=== PATIENT | male | born 1950 | race Caucasian/White ===

== ENCOUNTER 2019-04-04 17:26 | Outpatient (RCR) | payer MEDICARE, BC ==
[2019-04-02 05:20] VITALS: BP 133/79
[2019-04-02 17:20] VITALS: BP 141/64
[2019-04-03 05:06] VITALS: BP 121/87
[2019-04-03 17:22] VITALS: BP 119/74
[~2019-04-04] VITALS: Ht 193 cm; Wt 113.6 kg
[2019-04-04 05:39] VITALS: BP 125/76
[~2019-04-04 17:26] MED LIST: MAXIPIME2 G1 IV
[2019-04-04 17:44] VITALS: BP 112/82
== END 2019-04-04 18:30 | disposition home or self-care (01) ==
LOC: AMSURD 17:26
DX: N39.0 Urinary tract infection, site not specified (principal); Z79.899 Other long term (current) drug therapy
CPT/HCPCS: J0692

== ENCOUNTER → 2019-04-28 | Outpatient (CLI) | payer MEDICARE, BC ==
[2019-04-27 17:58] VITALS: BP 123/82
[2019-04-28 06:29] LABS: HEMATOCRIT 33.4 % (42.0-52.0); HEMOGLOBIN 10.8 g/dL (13.5-18.0); MEAN PLATELET VOLUME 9.2 fl (7.4-10.4); RED BLOOD COUNT 4.06 M/mm3 (4.20-5.60); RED CELL DISTRIBUTION WIDTH 13.2 % (11.5-14.5); WHITE BLOOD COUNT 4.7 K/mm3 (4.8-10.8)
[2019-04-28 06:35] LABS: ALBUMIN 3.4 g/dL (3.4-4.8)
[2019-04-28 06:36] LABS: CALCIUM 8.6 mg/dL (8.3-10.5)
[2019-04-28 06:37] LABS: TOTAL PROTEIN 6.2 g/dL (6.2-8.1)
[2019-04-28 06:39] LABS: TOTAL BILIRUBIN 0.3 mg/dL (0.2-1.2)
== END ==
LOC: LAB 05:51
PROVIDERS: Internal Medicine Infectious Disease
DX: N39.0 Urinary tract infection, site not specified (principal); B96.5 Pseudomonas (aeruginosa) (mallei) (pseudomallei) as the cause of diseases classified elsewhere

== ENCOUNTER → 2019-05-05 | Outpatient (CLI) | payer MEDICARE, BC ==
[2019-05-04 18:14] VITALS: BP 134/78
[2019-05-05 06:52] LABS: HEMATOCRIT 33.8 % (42.0-52.0); HEMOGLOBIN 10.6 g/dL (13.5-18.0); MEAN PLATELET VOLUME 9.2 fl (7.4-10.4); RED BLOOD COUNT 4.14 M/mm3 (4.20-5.60); WHITE BLOOD COUNT 4.5 K/mm3 (4.8-10.8)
[2019-05-05 07:00] LABS: ALBUMIN 3.6 g/dL (3.4-4.8); POTASSIUM 4.1 mmol/L (3.5-5.1)
[2019-05-05 07:01] LABS: CALCIUM 8.6 mg/dL (8.3-10.5)
[2019-05-05 07:03] LABS: TOTAL PROTEIN 6.5 g/dL (6.2-8.1)
[2019-05-05 07:04] LABS: TOTAL BILIRUBIN 0.3 mg/dL (0.2-1.2)
== END ==
LOC: LAB 05:53
PROVIDERS: Internal Medicine Cardiovascular Disease
DX: N39.0 Urinary tract infection, site not specified (principal); B96.5 Pseudomonas (aeruginosa) (mallei) (pseudomallei) as the cause of diseases classified elsewhere

== ENCOUNTER 2019-05-09 17:46 | Outpatient (RCR) | payer MEDICARE, BC ==
[2019-04-26 18:05] VITALS: BP 114/75
[2019-04-27 05:55] VITALS: BP 133/69
[2019-04-27 17:58] VITALS: BP 123/82
[2019-04-28 05:56] VITALS: BP 118/79
[2019-04-28 18:10] VITALS: BP 125/77
[2019-04-29 05:53] VITALS: BP 132/79
[2019-04-29 18:28] VITALS: BP 129/75
[2019-04-30 05:52] VITALS: BP 118/79
[2019-04-30 18:35] VITALS: BP 122/78
[2019-05-01 06:01] VITALS: BP 111/70
[2019-05-01 18:00] VITALS: BP 124/86
[2019-05-02 06:15] VITALS: BP 111/74
[2019-05-02 18:21] VITALS: BP 129/80
[2019-05-03 06:00] VITALS: BP 129/79
[2019-05-03 17:47] VITALS: BP 114/82
[2019-05-04 05:59] VITALS: BP 116/84
[2019-05-04 18:14] VITALS: BP 134/78
[2019-05-05 05:54] VITALS: BP 123/84
[2019-05-05 17:48] VITALS: BP 120/77
[2019-05-06 05:47] VITALS: BP 121/75
[2019-05-06 17:59] VITALS: BP 146/94
[2019-05-07 05:52] VITALS: BP 127/87
[2019-05-07 17:51] VITALS: BP 124/84
[2019-05-08 05:51] VITALS: BP 125/77
[2019-05-08 17:50] VITALS: BP 122/82
[~2019-05-09] VITALS: Ht 193 cm; Wt 113.6 kg
[2019-05-09 05:54] VITALS: BP 120/87
[2019-05-09 17:50] VITALS: BP 134/77
== END 2019-05-09 18:11 | disposition home or self-care (01) ==
LOC: AMSURD 17:46
DX: N39.0 Urinary tract infection, site not specified (principal); B96.5 Pseudomonas (aeruginosa) (mallei) (pseudomallei) as the cause of diseases classified elsewhere
CPT/HCPCS: J0692

== ENCOUNTER → 2019-09-01 | Outpatient (CLI) | payer MEDICARE, BC ==
[2019-08-31 18:39] VITALS: BP 138/85
[~2019-09-01] MED LIST changes: +AMOXICILLIN 50500 MG
[2019-09-01 18:17] LABS: POTASSIUM 4.2 mmol/L (3.5-5.1)
[2019-09-01 18:18] LABS: CALCIUM 9.3 mg/dL (8.3-10.5)
== END ==
LOC: LAB 17:55
PROVIDERS: Urology
DX: Z51.81 Encounter for therapeutic drug level monitoring (principal); Z79.899 Other long term (current) drug therapy

== ENCOUNTER 2019-09-04 17:30 | Outpatient (RCR) | payer MEDICARE, BC ==
[2019-08-29 17:58] VITALS: BP 132/87
[2019-08-30 18:26] VITALS: BP 140/94
[2019-08-30 19:03] VITALS: BP 140/77
--- NOTE | 2019-08-31 14:47 | NUR ---
DUE TO RECENT ORDER CHANGES THIS NURSE CALLED PHARMACY TO VERIFY WHEN GENT TROUGH IS DUE, PHARMACY VERIFIES TO DRAW GENT TROUGH PRIOR TO THE 3RD DOSE OF THE NEWEST ORDER DOSAGE, GENT TROUGH DUE PRIOR TO TOMORROW'S (09/01/18) DOSE PER PHARMACY
[2019-08-31 17:59] VITALS: BP 134/85
[2019-08-31 18:39] VITALS: BP 138/85
[2019-09-01 18:21] VITALS: BP 143/81
[2019-09-01 18:48] VITALS: BP 126/89
[2019-09-02 18:20] VITALS: BP 122/69
[2019-09-02 18:54] VITALS: BP 119/82
[2019-09-03 18:00] VITALS: BP 119/83
[~2019-09-04] VITALS: Ht 193 cm; Wt 113.6 kg
[2019-09-04 18:10] VITALS: BP 148/93
[2019-09-04 18:34] VITALS: BP 135/78
== END 2019-09-04 19:00 | disposition home or self-care (01) ==
LOC: AMSURD 17:30
DX: Z51.81 Encounter for therapeutic drug level monitoring (principal); Z79.899 Other long term (current) drug therapy
CPT/HCPCS: J1580

== ENCOUNTER 2019-09-28 16:25 | Outpatient (RCR) | payer MEDICARE, BC ==
[2019-09-22 07:24] VITALS: BP 134/86
[2019-09-22 16:42] VITALS: BP 146/93
[2019-09-23 05:50] VITALS: BP 126/76
[2019-09-23 06:10] VITALS: BP 121/82
[2019-09-23 16:25] VITALS: BP 143/91
[2019-09-24 07:16] VITALS: BP 150/58
[2019-09-24 16:29] VITALS: BP 148/95
[2019-09-25 07:13] VITALS: BP 139/82
[2019-09-25 16:45] VITALS: BP 129/90
[2019-09-26 07:10] VITALS: BP 121/79
[2019-09-26 16:45] VITALS: BP 151/92
--- NOTE | 2019-09-26 17:06 | NUR ---
This RN inserted a 20G IV into the pt's left antecubital fossa. The IV flushes without inflammation, redness, or tenderness noted. The pt's IV is wrapped with an FAISAL wrap and he leaves with IV in place. Pt is scheduled for IV antibiotics to be administered for two more days.
[2019-09-27 06:59] VITALS: BP 111/67
[2019-09-27 16:37] VITALS: BP 127/86
[~2019-09-28] VITALS: Ht 193 cm; Wt 113.6 kg
[2019-09-28 07:06] VITALS: BP 128/85
[2019-09-28 17:45] VITALS: BP 138/92
== END 2019-09-28 17:48 | disposition home or self-care (01) ==
LOC: AMSURD 16:25
DX: Z51.81 Encounter for therapeutic drug level monitoring (principal); Z79.899 Other long term (current) drug therapy
CPT/HCPCS: J0692

== ENCOUNTER → 2020-04-27 | Outpatient (CLI) | payer MEDICARE, BC ==
[2020-04-27 05:49] VITALS: BP 133/86
[2020-04-28 16:12] LABS: POTASSIUM 4.3 mmol/L (3.5-5.1)
[2020-04-28 16:13] LABS: CALCIUM 8.5 mg/dL (8.3-10.5)
== END ==
LOC: LAB 16:01
PROVIDERS: Nurse Practitioner Primary Care
DX: Z01.89 Encounter for other specified special examinations (principal)

== ENCOUNTER 2020-05-06 05:45 | Outpatient (RCR) | payer MEDICARE, BC ==
[2020-04-27 05:49] VITALS: BP 133/86
[2020-04-28 05:58] VITALS: BP 130/87
[2020-04-28 06:38] VITALS: BP 127/86
[2020-04-29 06:04] VITALS: BP 147/97
[2020-04-29 06:51] VITALS: BP 109/92
[2020-04-30 06:09] VITALS: BP 129/89
[2020-04-30 06:35] VITALS: BP 129/95
[2020-05-01 05:57] VITALS: BP 140/100
[2020-05-02 05:47] VITALS: BP 128/90
[2020-05-03 06:00] VITALS: BP 128/81
[2020-05-04 05:54] VITALS: BP 130/91
[2020-05-04 06:40] VITALS: BP 130/90
[2020-05-05 05:56] VITALS: BP 135/90
[2020-05-05 06:40] VITALS: BP 138/91
[~2020-05-06] VITALS: Ht 193 cm; Wt 111.8 kg
[2020-05-06 05:52] VITALS: BP 134/83
[2020-05-06 06:33] VITALS: BP 136/93
== END 2020-05-06 06:33 | disposition home or self-care (01) ==
LOC: AMSURD 05:45
DX: N39.0 Urinary tract infection, site not specified (principal)
CPT/HCPCS: J1580

== ENCOUNTER → 2020-09-15 | Outpatient (CLI) | payer MEDICARE, BC ==
[2020-09-14 18:56] VITALS: BP 147/108
== END ==
LOC: LAB 05:53
DX: Z01.89 Encounter for other specified special examinations (principal)

== ENCOUNTER 2020-09-20 17:37 | Outpatient (RCR) | payer MEDICARE, BC ==
[2020-09-14 18:56] VITALS: BP 147/108
--- NOTE | 2020-09-14 19:35 | NUR ---
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
[2020-09-15 18:06] VITALS: BP 136/54
[2020-09-16 17:25] VITALS: BP 132/98
[2020-09-17 18:39] VITALS: BP 121/89
[2020-09-17 19:19] VITALS: BP 136/93
[2020-09-18 18:49] VITALS: BP 131/91
[2020-09-18 19:16] VITALS: BP 129/90
[2020-09-19 17:55] VITALS: BP 145/96
[2020-09-20 17:58] VITALS: BP 145/93
== END 2020-12-13 | disposition home or self-care (01) ==
LOC: AMSURD
DX: N39.0 Urinary tract infection, site not specified (principal)
CPT/HCPCS: J1580

== ENCOUNTER → 2021-02-22 | Outpatient (CLI) | payer MEDICARE, BC | LOC: LAB 06:50 | DX: Z01.89 Encounter for other specified special examinations (principal) ==

== ENCOUNTER 2021-03-01 19:37 | Outpatient (RCR) | payer MEDICARE, BC ==
[2021-02-20 19:51] VITALS: BP 118/88
[2021-02-21 19:55] VITALS: BP 118/88
[2021-02-22 19:51] VITALS: BP 125/91
[2021-02-23 19:36] VITALS: BP 125/86
[2021-02-24 20:05] VITALS: BP 121/96
[2021-02-25 20:13] VITALS: BP 116/81
[2021-02-27 19:31] VITALS: BP 107/85
[2021-02-27 20:30] VITALS: BP 130/88
[2021-02-28 19:50] VITALS: BP 123/79
[2021-03-01 19:38] VITALS: BP 131/86
[2021-03-01 20:16] VITALS: BP 132/85
== END 2021-03-01 20:30 | disposition home or self-care (01) ==
LOC: AMSURD 19:37
DX: Z79.899 Other long term (current) drug therapy (principal)
CPT/HCPCS: J1580

== ENCOUNTER → 2021-07-23 | Outpatient (CLI) | payer MEDICARE, BC ==
[2021-07-23 16:08] LABS: BASO # 0.05 K/mm3 (0.02-0.10); EOS # 0.11 K/mm3 (0.04-0.40); EOS % 1.7 % (0.0-4.0); HEMATOCRIT 46.3 % (42.0-52.0); HEMOGLOBIN 15.7 g/dL (13.5-18.0); LYMPH# 1.13 K/mm3 (1.50-4.00); MEAN CELL VOLUME 91 fl (78-100); MEAN CORPUSCULAR HEMOGLOBIN 31 pg (27-31); MEAN CORPUSCULAR HGB CONC 34 g/dL (33-37); MONO # 0.37 K/mm3 (0.20-0.80); NEU # 4.63 K/mm3 (1.40-6.50); PLATELET COUNT 193 K/mm3 (130-400); RED BLOOD COUNT 5.09 M/mm3 (4.20-5.60); RED CELL DISTRIBUTION WIDTH 11.8 % (11.5-14.5); WHITE BLOOD COUNT 6.3 K/mm3 (4.8-10.8)
[2021-07-23 16:16] LABS: CALCIUM 9.2 mg/dL (8.3-10.5)
[2021-07-23 16:19] LABS: TOTAL BILIRUBIN 0.4 mg/dL (0.2-1.2)
== END ==
LOC: LAB 15:46
PROVIDERS: Family Medicine
DX: Z00.00 Encounter for general adult medical examination without abnormal findings (principal); M10.9 Gout, unspecified

== ENCOUNTER 2022-11-17 13:23 | Emergency (ER) | payer MEDICARE, BC ==
[~2022-11-17] VITALS: Ht 193 cm; Wt 111.5 kg
[2022-11-17] MEDS ORDERED: ZYLOPRIM 100MG100 MG PO (13:38)
[2022-11-17 13:52] LABS: BASO # 0.03 K/mm3 (0.02-0.10); EOS # 0.05 K/mm3 (0.04-0.40); EOS % 0.7 % (0.0-4.0); HEMATOCRIT 50.3 % (42.0-52.0); HEMOGLOBIN 17.5 g/dL (13.5-18.0); LYMPH# 0.95 K/mm3 (1.50-4.00); MEAN CELL VOLUME 87 fl (78-100); MEAN CORPUSCULAR HEMOGLOBIN 30 pg (27-31); MEAN CORPUSCULAR HGB CONC 35 g/dL (33-37); MEAN PLATELET VOLUME 9.2 fl (7.4-10.4); MONO # 0.34 K/mm3 (0.20-0.80); NEU # 5.39 K/mm3 (1.40-6.50); PLATELET COUNT 195 K/mm3 (130-400); RED BLOOD COUNT 5.81 M/mm3 (4.20-5.60); RED CELL DISTRIBUTION WIDTH 12.6 % (11.5-14.5); WHITE BLOOD COUNT 6.8 K/mm3 (4.8-10.8)
[2022-11-17 13:54] LABS: ALBUMIN 4.1 g/dL (3.4-4.8)
[2022-11-17 13:55] LABS: CALCIUM 9.3 mg/dL (8.3-10.5)
[2022-11-17 13:56] LABS: TOTAL PROTEIN 7.2 g/dL (6.2-8.1)
[2022-11-17 13:58] LABS: TOTAL BILIRUBIN 0.6 mg/dL (0.2-1.2)
[2022-11-17 14:33] LABS: URINE COLOR YELLOW
[2022-11-17 14:34] LABS: URINE APPEARANCE CLOUDY; URINE BILIRUBIN NEGATIVE (NEGATIVE); URINE BLOOD 250 ery/uL (NEGATIVE); URINE GLUCOSE NEGATIVE (NEGATIVE); URINE KETONE NEGATIVE (NEGATIVE); URINE LEUKOCYTE ESTERASE 2+ (NEGATIVE); URINE MUCUS PRESENT (NOT PRESENT); URINE NITRATE POSITIVE (NEGATIVE); URINE PROTEIN(semi-quant) 1+ (NEGATIVE); URINE UROBILINOGEN NORMAL (NORMAL); URINE WBC 16-30 /hpf (0-3)
[2022-11-17] MEDS ORDERED: CIPRO500 M1 PO (14:51)
[2022-11-17 15:03] VITALS: BP 148/110
== END 2022-11-17 15:00 | disposition home or self-care (01) ==
LOC: ED 13:23
PROVIDERS: Nurse Practitioner
DX: N39.0 Urinary tract infection, site not specified (principal); Z90.79 Acquired absence of other genital organ(s); Z88.1 Allergy status to other antibiotic agents

== ENCOUNTER 2024-09-07 13:58 | Emergency (ER) | payer MEDICARE, BC ==
[~2024-09-07] VITALS: Ht 193 cm; Wt 111.1 kg
[~2024-09-07 13:58] MED LIST changes: +CEFDINIR300 MG PO; +CIPRO500 M1 PO; +MACROBID 100 M100 MG PO; +RENACIDIN IRRIG30 ML IR; +ZYLOPRIM 100MG100 MG PO
[2024-09-07 14:05] VITALS: BP 134/103
== END 2024-09-07 14:50 | disposition home or self-care (01) ==
LOC: ED 13:58
DX: S00.01XA Abrasion of scalp, initial encounter (principal); M25.531 Pain in right wrist; W01.198A Fall on same level from slipping, tripping and stumbling with subsequent striking against other object, initial encounter; Y93.01 Activity, walking, marching and hiking; Y92.009 Unspecified place in unspecified non-institutional (private) residence as the place of occurrence of the external cause

== ENCOUNTER → 2024-11-01 | Outpatient (CLI) | payer MEDICARE, BC ==
[2024-11-01 17:08] LABS: BASO # 0.02 K/mm3 (0.02-0.10); EOS # 0.09 K/mm3 (0.04-0.40); EOS % 1.4 % (0.0-4.0); HEMOGLOBIN 15.8 g/dL (13.5-18.0); LYMPH# 1.22 K/mm3 (1.50-4.00); MEAN CELL VOLUME 88 fl (78-100); MEAN CORPUSCULAR HEMOGLOBIN 30 pg (27-31); MEAN CORPUSCULAR HGB CONC 34 g/dL (33-37); MEAN PLATELET VOLUME 8.9 fl (7.4-10.4); MONO # 0.33 K/mm3 (0.20-0.80); NEU # 4.71 K/mm3 (1.40-6.50); PLATELET COUNT 196 K/mm3 (130-400); RED BLOOD COUNT 5.34 M/mm3 (4.20-5.60); RED CELL DISTRIBUTION WIDTH 12.4 % (11.5-14.5); WHITE BLOOD COUNT 6.4 K/mm3 (4.8-10.8)
[2024-11-01 17:11] LABS: ALBUMIN 4.1 g/dL (3.4-4.8)
[2024-11-01 17:12] LABS: CALCIUM 9.4 mg/dL (8.3-10.5)
[2024-11-01 17:14] LABS: TOTAL PROTEIN 7.2 g/dL (6.2-8.1)
[2024-11-01 17:15] LABS: TOTAL BILIRUBIN 0.4 mg/dL (0.2-1.2)
== END ==
LOC: LAB 16:48
PROVIDERS: Family Medicine
DX: Z12.5 Encounter for screening for malignant neoplasm of prostate (principal); Z11.59 Encounter for screening for other viral diseases; E78.5 Hyperlipidemia, unspecified; M10.9 Gout, unspecified; I10 Essential (primary) hypertension